=== PATIENT | female | born 1980 | race Caucasian/White ===

== ENCOUNTER → 2019-10-15 | Outpatient (CLI) | payer MEDICARE, MEDICAID ==
[~2019-10-15] MED LIST: ALBU17AE23; FRS325T
--- NOTE | 2019-10-15 13:56 | Diagnostic Imaging Report ---
INDICATION: Routine screening. COMPARISON: No prior mammograms are available for comparison. This is a baseline study. TECHNIQUE: 2-D and 3-D bilateral screening mammography was performed with CAD. Both breasts show scattered fibroglandular densities. No spiculated mass or malignant appearing microcalcifications are seen. Axillae are unremarkable. IMPRESSION: BI-RADS Category 1. No mammographic features suspicious for malignancy are identified. Dictated by: Dictated on workstation # [id number]
== END ==
LOC: RAD 08:33
PROVIDERS: ATTEND Nurse Practitioner Family
DX: Z12.31 Encounter for screening mammogram for malignant neoplasm of breast (principal)
CPT/HCPCS: 77063; 77067

== ENCOUNTER 2020-10-21 09:04 | Emergency (ER) | payer MEDICARE, MEDICAID ==
[~2020-10-21] VITALS: Ht 160 cm; Wt 113.0 kg
[~2020-10-21 09:04] MED LIST changes: +CEPH500T PO
[2020-10-21 09:17] VITALS: BP 0/0
== END 2020-10-21 09:20 | disposition home or self-care (01) ==
LOC: EDUNIT# 09:04 → ER 09:06
DX: Z48.02 Encounter for removal of sutures (principal)

== ENCOUNTER → 2020-11-15 | Outpatient (CLI) | payer MEDICARE, MEDICAID | LOC: CARD 08:29 | PROVIDERS: ATTEND Pediatrics | DX: I08.0 Rheumatic disorders of both mitral and aortic valves (principal) | CPT/HCPCS: 93306 ==